=== PATIENT | male | born 1970 | race African-American/Black ===

== ENCOUNTER 2020-12-09 14:26 | Emergency (ER) | payer OTHER ==
[~2020-12-09] VITALS: Ht 170.2 cm; Wt 78.0 kg
[2020-12-09 16:03] VITALS: BP 141/81
== END 2020-12-09 16:07 | disposition home or self-care (01) ==
LOC: ER 14:26
DX: F16.129 Hallucinogen abuse with intoxication, unspecified (principal); R41.82 Altered mental status, unspecified